=== PATIENT | male | born 1960 | race Caucasian/White ===

== ENCOUNTER 2017-06-13 09:43 | Outpatient (CLI) | payer OTHER ==
[2017-06-13 10:10] LABS: BASOPHILS % 0.7 (0.0-1.5); MEAN CORPUSCULAR HEMOGLOBIN 27.5 pg (28.0-34.0); MEAN CORPUSCULAR VOLUME 82.8 fl (80.0-100.0); MONOCYTES % 6.6 % (0.0-11.0); NEUTROPHILS # 4.5 # k/uL (1.4-7.7)
[2017-06-13 11:28] LABS: eGFR (African) > 60; eGFR (Non-African) > 60
== END 2017-06-13 09:44 ==
LOC: LAB 09:43
PROVIDERS: ATTEND Physician Assistant
DX: Z00.00 Encounter for general adult medical examination without abnormal findings (principal); E11.9 Type 2 diabetes mellitus without complications; R63.5 Abnormal weight gain; E78.5 Hyperlipidemia, unspecified
CPT/HCPCS: 36415; 80053; 80061; 83036; 84153; 84443; 85025

== ENCOUNTER 2017-06-20 11:29 | Outpatient (CLI) | payer OTHER | END 2017-06-20 11:30 | LOC: LABRHC 11:29 | PROVIDERS: ATTEND Physician Assistant | DX: Z53.9 Procedure and treatment not carried out, unspecified reason (principal) ==

== ENCOUNTER 2017-10-09 08:17 | Outpatient (CLI) | payer OTHER | END 2017-10-09 08:18 | LOC: LAB 08:17 | PROVIDERS: ATTEND Physician Assistant | DX: E11.9 Type 2 diabetes mellitus without complications (principal) | CPT/HCPCS: 36415; 83036 ==

== ENCOUNTER 2018-02-07 08:20 | Outpatient (CLI) | payer OTHER | END 2018-02-07 08:21 | LOC: LAB 08:20 | PROVIDERS: ATTEND Physician Assistant | DX: E11.9 Type 2 diabetes mellitus without complications (principal) | CPT/HCPCS: 36415; 83036 ==

== ENCOUNTER 2018-07-31 08:58 | Outpatient (CLI) | payer OTHER ==
[2018-07-31 09:47] LABS: eGFR (Non-African) > 60
== END 2018-07-31 09:00 ==
LOC: LAB 08:58
PROVIDERS: ATTEND Family Medicine
DX: E11.9 Type 2 diabetes mellitus without complications (principal)
CPT/HCPCS: 36415; 80053; 80061; 83036

== ENCOUNTER 2018-12-17 16:56 | Outpatient (CLI) | payer OTHER ==
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
== END 2018-12-17 16:58 ==
LOC: RAD 16:56
PROVIDERS: ATTEND Family Medicine
DX: M50.322 Other cervical disc degeneration at C5-C6 level (principal)
CPT/HCPCS: 72040

== ENCOUNTER 2019-04-24 08:23 | Outpatient (CLI) | payer OTHER ==
[2019-04-24 09:17] LABS: HDL 35 mg/dL (>40); eGFR (Non-African) > 60
[2019-04-24 09:36] LABS: A1C 7.6 % (<5.7)
== END 2019-04-24 08:25 ==
LOC: LAB 08:23
PROVIDERS: ATTEND Family Medicine
DX: E11.9 Type 2 diabetes mellitus without complications (principal)
CPT/HCPCS: 36415; 80053; 80061; 83036